=== PATIENT | male | born 1945 | race Caucasian/White ===

== ENCOUNTER 2019-03-15 09:20 | Day surgery (SDC) | payer OTHER ==
[~2019-03-15] VITALS: Ht 177.8 cm; Wt 102.7 kg
[~2019-03-15 09:20] MED LIST: HYDACE5 PO; LEVSOD125 PO; LEVSOD25 PO; TAMS.4ER PO; TELMISARTAN-HC1 EAC1 PO
--- NOTE | 2019-03-15 10:25 | NUR ---
03/15/19 1024 Sergo Goldberg 1ST IV ATTEMPT IN LH UNSUCCESSFUL, ORSC.BDK 2ND IV ATTEMPT IN LAC SUCCESSFUL, ORSC.BDK
== END 2019-03-15 12:10 | disposition home or self-care (01) ==
LOC: ORSCSDS 09:20
PROVIDERS: Orthopaedic Surgery
PROC: 0SBC4ZZ Excision of Right Knee Joint, Percutaneous Endoscopic Approach (ICD-10-PCS; principal; 2019-03-15 10:30)
DX: M23.206 Derangement of unspecified meniscus due to old tear or injury, right knee (principal); M17.11 Unilateral primary osteoarthritis, right knee; E03.9 Hypothyroidism, unspecified; Z79.899 Other long term (current) drug therapy
CPT/HCPCS: J0171; J0690; J1100; J1885; J2250; J2405; J2704; J3010; J3301; J7120

== ENCOUNTER 2019-12-10 11:53 | Observation (INO) | payer OTHER ==
[~2019-12-10] VITALS: Ht 177.8 cm; Wt 106.7 kg
[~2019-12-10 11:53] MED LIST changes: -CLIN300 PO; -TELM80 PO; -VISBIOME 112.51 EACH PO
[2019-12-10 12:51] LABS: BASOPHILS ABSOLUTE AUTO 0.03 K/mm3 (0.00-0.23); BASOPHILS PERCENT AUTO 0 % (0-2); EOSINOPHILS PERCENT AUTO 0 % (0-6); Hematocrit 42.8 % (37.0-53.0); Hemoglobin 14.7 g/dL (13.5-17.5); IMMATURE GRAN ABSOLUTE AUTO 0.04 K/mm3 (0.00-0.10); IMMATURE GRAN PERCENT AUTO 0 % (0-1); LYMPHOCYTES ABSOLUTE AUTO 0.77 K/mm3 (0.84-5.20); LYMPHOCYTES PERCENT AUTO 6 % (21-46); MONOCYTES ABSOLUTE AUTO 1.18 K/mm3 (0.16-1.47); MONOCYTES PERCENT AUTO 10 % (4-13); Mean Corpuscular HGB 30.8 pg (26.0-34.0); Mean Corpuscular HGB Conc 34.3 g/dL (31.5-36.5); Mean Corpuscular Volume 90 fL (80-100); Mean Platelet Volume 11.4 fL (9.1-12.4); NEUTROPHILS ABSOLUTE AUTO 10.31 K/mm3 (1.96-9.15); NEUTROPHILS PERCENT AUTO 84 % (41-73); Platelet Count 126 K/mm3 (150-400); RDW Coefficient Variation 12.4 % (11.7-14.2); RDW Standard Deviation 40.9 fL (35.1-46.3); Red Blood Cell Count 4.78 M/mm3 (4.30-5.90); White Blood Cell Count 12.33 K/mm3 (4.00-11.30)
[2019-12-10 13:02] LABS: Albumin, Blood 3.3 g/dL (3.4-5.0); Bilirubin, Total 1.2 mg/dL (0.1-1.0); Bun/Creatinine Ratio 10.6 (12.0-20.0); Creatinine, Blood 1.41 mg/dL (0.60-1.20); Globulin, Blood 3.2 g/dL (2.2-4.0); Potassium, Blood 3.3 mmol/L (3.5-5.5); Total Protein, Blood 6.5 g/dL (6.4-8.2)
--- NOTE | 2019-12-10 18:37 | NUR ---
PT AOX4 UPON ARRIVAL TO FLOOR AT 1700. PT HAS BEEN SETTLED INTO ROOM. CALL LIGHT IS WITHIN REACH AND BED IN LOWEST POSITION. PT STATED HE WAS HAVING PAIN AND WAS TREATED PER EMAR. AFTER PAIN MED ADMINISTERED PT HAS BECOME VERY SLEEPY, BUT HAS BEEN ABLE TO ANSWER ALL QUESTIONS. BED ALARM IS IN PLACE DUE TO HIM BEING TIRED FROM PAIN MED. WILL CONTINUE TO MONITOR.
--- NOTE | 2019-12-10 19:01 | NUR ---
ASSUMED CARE RECEIVED REPORT FROM GRACE COTTRELL. ASSUMED CARE OF PT. NO ACUTE DISTRESS NOTED AT THIS TIME, COMFORTABLE. DENIES NEEDS AT THIS TIME. CALL LIGHT, POSSESSIONS IN REACH, WILL CONTINUE TO MONITOR.
--- NOTE | 2019-12-11 04:55 | NUR ---
SHIFT SUMMARY PT HAS HAD AN UNEVENTFUL NIGHT. NO S/S ACUTE DISTRESS NOTED. WARM WASH CLOTH APPLIED TO LT CHEEK ORDERED, PT TOLERATED WELL. SWELLING DECREASING, NO S/S RESPIRATORY DISTRESS NOTED T/O NIGHT. VS STABLE. WAS MONITORED EVERY 1-2 HOURS WITH NEEDS MET, DENIES NEEDS AT THIS TIME. CALL LIGHT, POSSESSIONS IN REACH, BED IN LOWEST POSITION WITH ALARM ON. WILL CONTINUE TO MONITOR UNTIL DAY RN ASSUMES CARE.
[2019-12-11 05:45] LABS: BASOPHILS ABSOLUTE AUTO 0.04 K/mm3 (0.00-0.23); BASOPHILS PERCENT AUTO 0 % (0-2); EOSINOPHILS ABSOLUTE AUTO 0.04 K/mm3 (0.00-0.68); EOSINOPHILS PERCENT AUTO 0 % (0-6); Hematocrit 39.2 % (37.0-53.0); Hemoglobin 13.3 g/dL (13.5-17.5); IMMATURE GRAN ABSOLUTE AUTO 0.03 K/mm3 (0.00-0.10); IMMATURE GRAN PERCENT AUTO 0 % (0-1); LYMPHOCYTES ABSOLUTE AUTO 1.09 K/mm3 (0.84-5.20); LYMPHOCYTES PERCENT AUTO 12 % (21-46); MONOCYTES ABSOLUTE AUTO 1.04 K/mm3 (0.16-1.47); MONOCYTES PERCENT AUTO 12 % (4-13); Mean Corpuscular HGB 30.6 pg (26.0-34.0); Mean Corpuscular HGB Conc 33.9 g/dL (31.5-36.5); Mean Corpuscular Volume 90 fL (80-100); Mean Platelet Volume 11.3 fL (9.1-12.4); NEUTROPHILS ABSOLUTE AUTO 6.73 K/mm3 (1.96-9.15); NEUTROPHILS PERCENT AUTO 75 % (41-73); Platelet Count 109 K/mm3 (150-400); RDW Coefficient Variation 12.2 % (11.7-14.2); RDW Standard Deviation 40.1 fL (35.1-46.3); Red Blood Cell Count 4.35 M/mm3 (4.30-5.90); White Blood Cell Count 8.97 K/mm3 (4.00-11.30)
[2019-12-11 06:00] LABS: Bun/Creatinine Ratio 9.6 (12.0-20.0); Calcium, Blood 7.4 mg/dL (8.5-10.1); Creatinine, Blood 1.36 mg/dL (0.60-1.20); Potassium, Blood 3.2 mmol/L (3.5-5.5)
--- NOTE | 2019-12-11 16:48 | NUR ---
SHIFT SUMMARY THIS AFTERNOON PT FACIAL SWELLING INCREASED SLIGHTLY. TYLENOL GIVEN FOR PAIN & SWELLING. HEAT PACK APPLIED FOR COMFORT. PT NO STATES PAIN IS GONE. PT HAD ACCIDENT OF DIARRHEA ONCE THIS AFTERNOON. PT CLEANED UP. PROBIOTIC GIVEN EARLIER IN THE DAY TO HELP. NO OTHER ACUTE CHANGES IN ASSESSMENT AT THIS TIME. VSS. WILL CONTINUE TO MONITOR UNTIL TURNOVER IS COMPLETE.
--- NOTE | 2019-12-12 06:50 | NUR ---
12/12/19 0630 AWAKE AND WATCHING TV. CHEERFUL AND STATES SWELLING TO LEFT SIDE OF JAW IS BETTER THIS AM. STILL NOT ABLE TO OPEN HIS MOUTH FULLY. TAKING ORAL INTAKE WELL. VITALS STABLE.
[2019-12-12] MEDS ORDERED: TELM80 PO (10:12)
[2019-12-12] MEDS ORDERED: VISBIOME 112.51 EACH PO (10:14)
[2019-12-12] MEDS ORDERED: CLIN300 PO (10:14)
--- NOTE | 2019-12-12 11:33 | NUR ---
D/C NOTE: EDUCATION/INSTRUCTIONS GONE OVER WITH PT. PT DENIES ANY FURTHER QUESTIONS AT THIS TIME. IV DISCONTINUED IN TACT. PT CONTACTED FAMILY FOR RIDE HOME. PT TAKEN TO FAMILY VIA W/C. DISCHARGED AT 1134.
== END 2019-12-12 11:35 | disposition home or self-care (01) ==
LOC: ER 11:53 → MEDS 11:54
PROVIDERS: Emergency Medicine; ADMIT Internal Medicine
DX: K11.21 Acute sialoadenitis (principal); I10 Essential (primary) hypertension; E03.9 Hypothyroidism, unspecified; E87.6 Hypokalemia; Z79.899 Other long term (current) drug therapy
CPT/HCPCS: 36415; 70486; 80048; 80053; 85025; 96361; 96365; 96366; 96372; 96374; 96375; 96376; 99285-25; A9270; A9270-GY; G0378; J1170; J1650; J2405; J7030; J7050

== ENCOUNTER → 2019-12-10 | Outpatient (CLI) | payer OTHER ==
[~2019-12-10] MED LIST changes: +CLIN300 PO; +EUTHYROX125 MCG PO; -LEVSOD125 PO; +TELM80 PO; +VISBIOME 112.51 EACH PO
[2019-12-10 11:22] LABS: Albumin, Blood 3.9 g/dL (3.4-5.0); Albumin/Globulin Ratio 1.1 (0.8-1.8); Bilirubin, Total 1.3 mg/dL (0.1-1.0); Bun/Creatinine Ratio 8.6 (12.0-20.0); Calcium, Blood 8.7 mg/dL (8.5-10.1); Creatinine, Blood 1.74 mg/dL (0.60-1.20); Globulin, Blood 3.4 g/dL (2.2-4.0); Potassium, Blood 3.4 mmol/L (3.5-5.5); Total Protein, Blood 7.3 g/dL (6.4-8.2)
[2019-12-10 11:23] LABS: BASOPHILS ABSOLUTE AUTO 0.06 K/mm3 (0.00-0.23); BASOPHILS PERCENT AUTO 1 % (0-2); EOSINOPHILS ABSOLUTE AUTO 0.02 K/mm3 (0.00-0.68); EOSINOPHILS PERCENT AUTO 0 % (0-6); IMMATURE GRAN ABSOLUTE AUTO 0.03 K/mm3 (0.00-0.10); IMMATURE GRAN PERCENT AUTO 0 % (0-1); LYMPHOCYTES ABSOLUTE AUTO 1.32 K/mm3 (0.84-5.20); LYMPHOCYTES PERCENT AUTO 11 % (21-46); MONOCYTES ABSOLUTE AUTO 1.17 K/mm3 (0.16-1.47); MONOCYTES PERCENT AUTO 10 % (4-13); Mean Corpuscular HGB 30.7 pg (26.0-34.0); Mean Corpuscular HGB Conc 34.8 g/dL (31.5-36.5); Mean Corpuscular Volume 88 fL (80-100); Mean Platelet Volume 11.8 fL (9.1-12.4); NEUTROPHILS ABSOLUTE AUTO 9.09 K/mm3 (1.96-9.15); NEUTROPHILS PERCENT AUTO 78 % (41-73); Platelet Count 150 K/mm3 (150-400); RDW Coefficient Variation 12.5 % (11.7-14.2); Red Blood Cell Count 5.22 M/mm3 (4.30-5.90); White Blood Cell Count 11.69 K/mm3 (4.00-11.30)
== END | disposition home or self-care (01) ==
LOC: LAB SHORT 11:08 → LAB EV 11:08
PROVIDERS: Physician Assistant
DX: K11.20 Sialoadenitis, unspecified (principal)
CPT/HCPCS: 80053; 85025

== ENCOUNTER 2020-08-28 19:53 | Inpatient (IN) | payer OTHER ==
[~2020-08-28] VITALS: Ht 177.8 cm; Wt 104.3 kg
[~2020-08-28 19:53] MED LIST changes: +CLIN300 PO; +TELM80 PO; +VISBIOME 112.51 EACH PO
[2020-08-28] MEDS ORDERED: POTA10T PO (20:10)
[2020-08-28 20:40] LABS: BASOPHILS ABSOLUTE AUTO 0.03 K/mm3 (0.00-0.23); BASOPHILS PERCENT AUTO 0 % (0-2); EOSINOPHILS ABSOLUTE AUTO 0.06 K/mm3 (0.00-0.68); EOSINOPHILS PERCENT AUTO 1 % (0-6); Hematocrit 29.7 % (37.0-53.0); Hemoglobin 9.9 g/dL (13.5-17.5); IMMATURE GRAN ABSOLUTE AUTO 0.15 K/mm3 (0.00-0.10); IMMATURE GRAN PERCENT AUTO 1 % (0-1); LYMPHOCYTES ABSOLUTE AUTO 0.84 K/mm3 (0.84-5.20); LYMPHOCYTES PERCENT AUTO 7 % (21-46); MONOCYTES ABSOLUTE AUTO 0.63 K/mm3 (0.16-1.47); MONOCYTES PERCENT AUTO 5 % (4-13); Mean Corpuscular HGB 30.2 pg (26.0-34.0); Mean Corpuscular HGB Conc 33.3 g/dL (31.5-36.5); Mean Corpuscular Volume 91 fL (80-100); Mean Platelet Volume 10.5 fL (9.1-12.4); NEUTROPHILS PERCENT AUTO 86 % (41-73); Platelet Count 339 K/mm3 (150-400); RDW Coefficient Variation 12.4 % (11.7-14.2); RDW Standard Deviation 40.7 fL (35.1-46.3); Red Blood Cell Count 3.28 M/mm3 (4.30-5.90); White Blood Cell Count 12.11 K/mm3 (4.00-11.30)
[2020-08-28 20:54] LABS: Alanine Aminotransfer (ALT/SGP 53 U/L (12-78); Albumin, Blood 2.4 g/dL (3.4-5.0); Albumin/Globulin Ratio 0.9 (0.8-1.8); Alk Phos 79 U/L (50-136); Anion Gap 4 mmol/L (6-16); Aspartate Aminotrans (AST/SGOT 21 U/L (12-37); Bilirubin, Total 0.5 mg/dL (0.1-1.0); Blood Urea Nitrogen 32 mg/dL (8-24); Bun/Creatinine Ratio 24.8 (12.0-20.0); CO2, Blood 27 mmol/L (21-32); Calcium, Blood 7.7 mg/dL (8.5-10.1); Chloride, Blood 109 mmol/L (98-108); Creatinine, Blood 1.29 mg/dL (0.60-1.20); Globulin, Blood 2.6 g/dL (2.2-4.0); Glomerular Filtration Rate 57 (60-); Glucose, Blood 149 mg/dL (70-99); Magnesium, Blood 2.2 mg/dL (1.6-2.4); Potassium, Blood 4.8 mmol/L (3.5-5.5); Sodium, Blood 140 mmol/L (136-145); Troponin I <0.015 ng/mL (0.000-0.040)
[2020-08-28 21:46] LABS: SARS-Cov-2 (COVID-19) PCR, MMC Positive (NEGATIVE)
[2020-08-28 21:49] LABS: Influenza A, PCR Negative (NEGATIVE); Influenza B, PCR Negative (NEGATIVE); Resp Syncytial Virus, PCR Negative (NEGATIVE)
--- NOTE | 2020-08-29 01:22 | NUR ---
ADMIT NOTE PT ARRIVED TO PCU FROM ED VIA ED STRETCHER AT APPROX MIDNIGHT. PT WAS SLID BY 4 STAFF FROM ED STRETCHER TO PCU BED. PT WAS ACCOMPANIED BY WHO WENT HOME. PT IS A&OX4. SP02>92% ON RA. TELEMETRY READS ST, HR 100'S. UPON ARRIVAL, PT STATED HE NEEDED TO HAVE A BM. PT UP TO BS W/ 2 PERSON ASSIST TO HAVE BLACK TARRY MIXED WITH RED LOOSE BM. PT C/O OF DIZZINESS WHILE PIVOTING TO BED FROM [facility]. PROTONIX INFUSING PER EMAR. ABX INFUSING PER EMAR. PT ORIENTED TO ROOM, CALL LIGHT IN REACH. SCD'S IN PLACE FOR DVT PROPHYLAXIS.
[2020-08-29 04:57] LABS: BASOPHILS ABSOLUTE AUTO 0.02 K/mm3 (0.00-0.23); BASOPHILS PERCENT AUTO 0 % (0-2); EOSINOPHILS ABSOLUTE AUTO 0.01 K/mm3 (0.00-0.68); EOSINOPHILS PERCENT AUTO 0 % (0-6); Hematocrit 25.2 % (37.0-53.0); Hemoglobin 8.2 g/dL (13.5-17.5); IMMATURE GRAN ABSOLUTE AUTO 0.11 K/mm3 (0.00-0.10); IMMATURE GRAN PERCENT AUTO 1 % (0-1); LYMPHOCYTES ABSOLUTE AUTO 1.14 K/mm3 (0.84-5.20); LYMPHOCYTES PERCENT AUTO 8 % (21-46); MONOCYTES ABSOLUTE AUTO 0.85 K/mm3 (0.16-1.47); MONOCYTES PERCENT AUTO 6 % (4-13); Mean Corpuscular HGB 29.6 pg (26.0-34.0); Mean Corpuscular HGB Conc 32.5 g/dL (31.5-36.5); Mean Corpuscular Volume 91 fL (80-100); Mean Platelet Volume 10.3 fL (9.1-12.4); NEUTROPHILS ABSOLUTE AUTO 12.87 K/mm3 (1.96-9.15); NEUTROPHILS PERCENT AUTO 86 % (41-73); Platelet Count 308 K/mm3 (150-400); RDW Coefficient Variation 12.5 % (11.7-14.2); RDW Standard Deviation 41.4 fL (35.1-46.3); Red Blood Cell Count 2.77 M/mm3 (4.30-5.90)
[2020-08-29 05:12] LABS: Calcium, Blood 7.4 mg/dL (8.5-10.1); Creatinine, Blood 1.25 mg/dL (0.60-1.20)
--- NOTE | 2020-08-29 06:25 | NUR ---
SHIFT SUMMARY PT IS A&OX4. SP02>92% ON RA. TELEMETRY READS ST, HR 100'S. UPON ARRIVAL, PT STATED HE NEEDED TO HAVE A BM. PT UP TO BSC W/ 2 PERSON ASSIST TO HAVE BLACK TARRY MIXED WITH RED LOOSE BM. PT C/O OF DIZZINESS WHILE PIVOTING TO BED FROM BSC. PT SLEPT T/O THE NIGHT. PROTONIX INFUSING PER EMAR. ABX INFUSING PER EMAR. CALL LIGHT IN REACH. WILL GIVE REPORT TO ONCOMING NURSE.
[2020-08-29 10:48] LABS: Hematocrit 23.5 % (37.0-53.0); Hemoglobin 7.7 g/dL (13.5-17.5)
[2020-08-29 14:21] LABS: Hematocrit 26.4 % (37.0-53.0); Hemoglobin 8.6 g/dL (13.5-17.5)
--- NOTE | 2020-08-29 15:13 | NUR ---
BROUGHT TO [facility] ADMISSION [facility]ARTE DTO UNIT
--- NOTE | 2020-08-29 15:36 | NUR ---
08/29/20 1536 Stewart Acosta See Anesthesia record. O2 VIA N/C INTACT THROUGHOUT SEDATION/PROCEDURE. MONITOR INTACT WITH CONTINUOUS PULSE OXIMETRY AND INTERMITTENT BP.
--- NOTE | 2020-08-29 18:28 | NUR ---
SHIFT SUMMARY- PT IS A/O, PLESANT AND COOPERATIVE. HE IS EATING AND DRINKING WELL. HE HAD A BLOODY BM THIS MORNING. HE IS RECIEVING IV PROTONIX DRIP AND IV FLUIDS. HE RECIEVED A BLOOD TRANSFUSION THIS AFTERNOON. HE WENT FOR AN EGD THIS AFTERNOON AND A BLEED WAS LOCATED AND THREE CLIPS WERE PLACED. SPOKE WITH HIS ON THE PHONE TO UPDATE. HIS BED IS IN THE LOW POSITION AND CALL LIGHT IS WITHIN REACH.
[2020-08-29 18:36] LABS: Hematocrit 28.3 % (37.0-53.0); Hemoglobin 9.4 g/dL (13.5-17.5)
[2020-08-29 21:35] LABS: Hematocrit 26.1 % (37.0-53.0); Hemoglobin 8.8 g/dL (13.5-17.5)
[2020-08-30 04:29] LABS: BASOPHILS ABSOLUTE AUTO 0.02 K/mm3 (0.00-0.23); BASOPHILS PERCENT AUTO 0 % (0-2); EOSINOPHILS PERCENT AUTO 0 % (0-6); Hematocrit 25.7 % (37.0-53.0); Hemoglobin 8.6 g/dL (13.5-17.5); IMMATURE GRAN ABSOLUTE AUTO 0.25 K/mm3 (0.00-0.10); IMMATURE GRAN PERCENT AUTO 2 % (0-1); LYMPHOCYTES ABSOLUTE AUTO 0.78 K/mm3 (0.84-5.20); LYMPHOCYTES PERCENT AUTO 6 % (21-46); MONOCYTES ABSOLUTE AUTO 0.75 K/mm3 (0.16-1.47); MONOCYTES PERCENT AUTO 5 % (4-13); Mean Corpuscular HGB 30.2 pg (26.0-34.0); Mean Corpuscular HGB Conc 33.5 g/dL (31.5-36.5); Mean Corpuscular Volume 90 fL (80-100); Mean Platelet Volume 10.2 fL (9.1-12.4); NEUTROPHILS ABSOLUTE AUTO 12.37 K/mm3 (1.96-9.15); NEUTROPHILS PERCENT AUTO 87 % (41-73); Platelet Count 309 K/mm3 (150-400); RDW Coefficient Variation 13.3 % (11.7-14.2); RDW Standard Deviation 43.9 fL (35.1-46.3); Red Blood Cell Count 2.85 M/mm3 (4.30-5.90); White Blood Cell Count 14.17 K/mm3 (4.00-11.30)
--- NOTE | 2020-08-30 04:39 | NUR ---
SHIFT SUMMARY NO ACUTE CHANGES THIS SHIFT. PT A&OX4. SP02>92% ON RA. TELEMETRY READS SR, HR 80'S-90'S. PT UP TO BSC W/ ASSIST, DENIES DIZZINESS OR SOB W/ AMBULATION. PT DENIES PAIN. PT STATES HE "FEELS ALOT BETTER THAN YESTERDAY". PT REMAINS ON CL DIET. LR AND PROTONIX INFUSING PER EMAR. PT SLEPT T/O THE NIGHT. CALL LIGHT IN REACH. WILL MONITOR AND GIVE REPORT TO ONCOMING SHIFT NURSE.
[2020-08-30 04:48] LABS: Anion Gap 7 mmol/L (6-16); Blood Urea Nitrogen 24 mg/dL (8-24); Bun/Creatinine Ratio 19.5 (12.0-20.0); CO2, Blood 24 mmol/L (21-32); Calcium, Blood 7.9 mg/dL (8.5-10.1); Chloride, Blood 115 mmol/L (98-108); Creatinine, Blood 1.23 mg/dL (0.60-1.20); Glomerular Filtration Rate >60 (60-); Glucose, Blood 129 mg/dL (70-99); Potassium, Blood 4.3 mmol/L (3.5-5.5); Sodium, Blood 146 mmol/L (136-145)
--- NOTE | 2020-08-30 16:24 | NUR ---
TRANSFER/SHIFT SUMMARY PT IS ALERT AND ORIENTED X4. ON ROOM AIR SATING >92%. DENIES SOB, AND CHEST PAIN. TELE SHOWING SINUS RHYTHM. NO BOWEL MOVEMENT THIS SHIFT, UNABLE TO VISUALIZE STOOL. CONTINUOUS PROTONIX AND LR INFUSING. FULL LIQUID DIET WITH GOOD APPETITE. VITAL SIGNS STABLE. NO ACUTE CHANGES THIS SHIFT.
--- NOTE | 2020-08-30 16:53 | NUR ---
RECEIVED PT 1640. PLEASANT TALKATIVE. STATES FROM [place]. DENIES PAIN. ON R.A. DENIES SOB. PT AMBULATED SELF TO BED FROM WHEELCHAIR. PROTONIX RUNNING PRESENTLY. ALSO EXTRA BAG IN RESERVE. NO CONCERNS AT THIS TIME. SITTTING UP WATCHING TV AT THIS TIME. BED IN LOW POSITION, CALL LITE IN REACH, CALLS APPROP
[2020-08-31 05:04] LABS: BASOPHILS ABSOLUTE AUTO 0.02 K/mm3 (0.00-0.23); BASOPHILS PERCENT AUTO 0 % (0-2); EOSINOPHILS PERCENT AUTO 0 % (0-6); Hematocrit 25.8 % (37.0-53.0); Hemoglobin 8.6 g/dL (13.5-17.5); IMMATURE GRAN ABSOLUTE AUTO 0.33 K/mm3 (0.00-0.10); IMMATURE GRAN PERCENT AUTO 2 % (0-1); LYMPHOCYTES ABSOLUTE AUTO 0.99 K/mm3 (0.84-5.20); LYMPHOCYTES PERCENT AUTO 6 % (21-46); MONOCYTES ABSOLUTE AUTO 1.01 K/mm3 (0.16-1.47); MONOCYTES PERCENT AUTO 6 % (4-13); Mean Corpuscular HGB 29.6 pg (26.0-34.0); Mean Corpuscular HGB Conc 33.3 g/dL (31.5-36.5); Mean Corpuscular Volume 89 fL (80-100); Mean Platelet Volume 10.2 fL (9.1-12.4); NEUTROPHILS ABSOLUTE AUTO 14.47 K/mm3 (1.96-9.15); NEUTROPHILS PERCENT AUTO 86 % (41-73); NRBC ABSOLUTE 0.04 K/mm3 (0.00-0.02); NRBC Auto 0.2 /100 WBC (0.0-0.2); Platelet Count 358 K/mm3 (150-400); RDW Coefficient Variation 13.2 % (11.7-14.2); RDW Standard Deviation 42.4 fL (35.1-46.3); Red Blood Cell Count 2.91 M/mm3 (4.30-5.90); White Blood Cell Count 16.82 K/mm3 (4.00-11.30)
[2020-08-31 05:20] LABS: Anion Gap 5 mmol/L (6-16); Blood Urea Nitrogen 18 mg/dL (8-24); Bun/Creatinine Ratio 15.5 (12.0-20.0); CO2, Blood 26 mmol/L (21-32); Calcium, Blood 8.3 mg/dL (8.5-10.1); Chloride, Blood 114 mmol/L (98-108); Creatinine, Blood 1.16 mg/dL (0.60-1.20); Glomerular Filtration Rate >60 (60-); Glucose, Blood 119 mg/dL (70-99); Potassium, Blood 4.1 mmol/L (3.5-5.5); Sodium, Blood 145 mmol/L (136-145)
--- NOTE | 2020-08-31 05:59 | NUR ---
SHIFT SUMMARY: PATIENT IS A&OX4, VSS, NO REPORTS OF PAIN. TOLERATING A FULL LIQUID DIET FAIR, POOR APPETITE. UP TO THE BSC WITH SBA X1, VOIDS IN URINAL. LR INFUSING @ 100ML/HR, PROTONIX GTT INFUSING AT 10ML/HR.
[2020-08-31] MEDS ORDERED: PANT40 PO (17:42)
[2020-08-31] MEDS ORDERED: REMDESIVIR IV (17:43)
[2020-08-31] MEDS ORDERED: DEXA6 PO (17:44)
--- NOTE | 2020-08-31 19:06 | NUR ---
SHIFT SUMMARY PT A/O X3; PLEASANT AND COOPERATIVE WITH CARE. RECEIVED IV STEROIDS THIS AM. WILL RECEIVED INFUSIONS AT THE [facility]ION [facility] UPON DISCHARGE. FAMILY NOTIFIED OF THIS AND APPOINTMENTS SET UP. UP WITH A ONE ASSIST. ON ROOM AIR. NO ACUTE CHANGES THIS SHIFT. VSS. DISCHARGED HOME WITH DAUGHTER.
--- NOTE | 2020-09-02 19:39 | NUR ---
CALLED PT RE PILL ORGANIZER WITH PILLS LEFT BEHIND AT DISCHARGE, PT REPORTS HE WILL PICK IT UP WHEN HE IS ABLE TO GET TO TOWN NEXT, SENT TO PHARMACY.
--- NOTE | 2020-09-02 19:50 | NUR ---
PHARMACY JUST CALLED AND TOLD ME THAT THEY ARE NOT ALLOWED TO TAKE ANYTHING FROM A PT'S ROOM THAT WAS COVID POSITIVE. IT WAS MY UNDERSTANDING THAT ANY MEDS FROM THEIR ROOM WAS SUPPOSED TO BE PLACED IN A BAG BEFORE IT COULD BE SENT FROM PHARMACY, NOT THAT THEY COULD NOT TAKE IT AT ALL, THE MED WAS PLACED IN A BAG BEFORE IT WAS SENT TO PHARMACY, I ALSO ATTEMPTED TO CALL THEM WHEN THE MED WAS SENT TO LET THEM KNOW I WAS SENDING A MED FOR THEIR SAFE FOR THE PT TO HOT ROLL LAMINATOR AND NO ONE ANSWERED THE PHONE. PHARMACY STATED IT DOES NOT MATTER IF I PLACED IT IN A BAG OR THAT THE PT IS EXPECTING TO HOT ROLL LAMINATOR THEIR MEDS AND PILL ORGANIZER, THEY THREW IT AWAY AND ARE WRITING AN IRIS ON IT. I LET HER KNOW THAT THEY COULD EXPLAIN TO THE PT WHY THEY THREW THEIR MEDICATIONS AWAY WHEN THEY CAME TO PICK THEM UP. I AM NOT SURE THEIR ACTIONS WERE THE APPROPRIATE ACTIONS.
== END 2020-08-31 18:53 | disposition home or self-care (01) | DRG 871 ==
LOC: ER 19:53 → PCU 23:44 → MEDS 23:44 → PCU 23:57 → MEDS 08-30 16:28
PROVIDERS: Emergency Medicine; Internal Medicine; Student in an Organized Health Care Education/Training Program; ADMIT Family Medicine
PROC: XW043E5 Introduction of Remdesivir Anti-infective into Central Vein, Percutaneous Approach, New Technology Group 5 (ICD-10-PCS; 2020-08-28)
PROC: XW13325 Transfusion of Convalescent Plasma (Nonautologous) into Peripheral Vein, Percutaneous Approach, New Technology Group 5 (ICD-10-PCS; 2020-08-28)
PROC: 30233N1 Transfusion of Nonautologous Red Blood Cells into Peripheral Vein, Percutaneous Approach (ICD-10-PCS; 2020-08-29)
PROC: 0W3P8ZZ Control Bleeding in Gastrointestinal Tract, Via Natural or Artificial Opening Endoscopic (ICD-10-PCS; principal; 2020-08-29 14:30)
PROC: 0D598ZZ Destruction of Duodenum, Via Natural or Artificial Opening Endoscopic (ICD-10-PCS; 2020-08-29 14:30)
PROC: 3E0G8GC Introduction of Other Therapeutic Substance into Upper GI, Via Natural or Artificial Opening Endoscopic (ICD-10-PCS; 2020-08-29 14:30)
DX: A41.89 Other specified sepsis (principal); J12.82 Pneumonia due to coronavirus disease 2019; U07.1 COVID-19; K26.4 Chronic or unspecified duodenal ulcer with hemorrhage; D62 Acute posthemorrhagic anemia; E03.9 Hypothyroidism, unspecified; R65.20 Severe sepsis without septic shock; I12.9 Hypertensive chronic kidney disease with stage 1 through stage 4 chronic kidney disease, or unspecified chronic kidney disease; N18.30 Chronic kidney disease, stage 3 unspecified; Z85.46 Personal history of malignant neoplasm of prostate; Z92.3 Personal history of irradiation; R79.89 Other specified abnormal findings of blood chemistry
CPT/HCPCS: 0241U; 36415; 36430; 71045; 80048; 80053; 82272; 83605; 83735; 84145; 84484; 85014; 85018; 85025; 86850; 86900; 86901; 86923; 87040; 93005; 93010; 94762; 96361; 96365; 96366; 96368; 99285-25; A9270; C9113; J0171; J0456; J0696; J1100; J2704; J2765; J7030; J7050; J7120; P9016

== ENCOUNTER 2020-09-01 15:23 | Day surgery (SDC) | payer OTHER ==
[~2020-09-01 15:23] MED LIST changes: +DEXA6 PO; +PANT40 PO; +POTA10T PO; +REMDESIVIR IV
== END 2020-09-01 17:01 | disposition home or self-care (01) ==
LOC: ATC 15:23
DX: U07.1 COVID-19 (principal); I12.9 Hypertensive chronic kidney disease with stage 1 through stage 4 chronic kidney disease, or unspecified chronic kidney disease; N18.30 Chronic kidney disease, stage 3 unspecified; E03.9 Hypothyroidism, unspecified; Z85.46 Personal history of malignant neoplasm of prostate; Z86.010 Personal history of colon polyps; Z87.01 Personal history of pneumonia (recurrent)
CPT/HCPCS: 96365

== ENCOUNTER 2020-09-02 14:30 | Day surgery (SDC) | payer OTHER | END 2020-09-02 17:20 | disposition home or self-care (01) | LOC: ATC 14:30 | DX: U07.1 COVID-19 (principal); J12.81 Pneumonia due to SARS-associated coronavirus; K92.1 Melena; K92.0 Hematemesis; I12.9 Hypertensive chronic kidney disease with stage 1 through stage 4 chronic kidney disease, or unspecified chronic kidney disease; N18.30 Chronic kidney disease, stage 3 unspecified; E03.9 Hypothyroidism, unspecified; D62 Acute posthemorrhagic anemia; I82.409 Acute embolism and thrombosis of unspecified deep veins of unspecified lower extremity; D72.829 Elevated white blood cell count, unspecified; Z85.46 Personal history of malignant neoplasm of prostate | CPT/HCPCS: 96365 ==

== ENCOUNTER 2024-03-29 14:38 | Emergency (ER) | payer OTHER ==
[~2024-03-29] VITALS: Ht 177.8 cm; Wt 106.6 kg
[~2024-03-29 14:38] MED LIST changes: +CEFD300 PO; +MECL25 PO
[2024-03-29 14:56] LABS: BASOPHILS ABSOLUTE AUTO 0.06 K/mm3 (0.00-0.23); BASOPHILS PERCENT AUTO 1 % (0-2); EOSINOPHILS ABSOLUTE AUTO 0.13 K/mm3 (0.00-0.68); EOSINOPHILS PERCENT AUTO 2 % (0-6); Hematocrit 43.3 % (37.0-53.0); Hemoglobin 14.9 g/dL (13.5-17.5); IMMATURE GRAN ABSOLUTE AUTO 0.02 K/mm3 (0.00-0.10); IMMATURE GRAN PERCENT AUTO 0 % (0-1); LYMPHOCYTES ABSOLUTE AUTO 1.19 K/mm3 (0.84-5.20); LYMPHOCYTES PERCENT AUTO 21 % (21-46); MONOCYTES ABSOLUTE AUTO 0.55 K/mm3 (0.16-1.47); MONOCYTES PERCENT AUTO 10 % (4-13); Mean Corpuscular HGB 30.5 pg (26.0-34.0); Mean Corpuscular HGB Conc 34.4 g/dL (31.5-36.5); Mean Corpuscular Volume 89 fL (80-100); Mean Platelet Volume 11.4 fL (9.1-12.4); NEUTROPHILS ABSOLUTE AUTO 3.68 K/mm3 (1.96-9.15); NEUTROPHILS PERCENT AUTO 65 % (41-73); Platelet Count 149 K/mm3 (150-400); RDW Coefficient Variation 12.8 % (11.7-14.2); RDW Standard Deviation 41.5 fL (35.1-46.3); Red Blood Cell Count 4.89 M/mm3 (4.30-5.90); White Blood Cell Count 5.63 K/mm3 (4.00-11.30)
[2024-03-29 15:09] LABS: Albumin, Blood 3.3 g/dL (3.4-5.0); Albumin/Globulin Ratio 1.2 (0.8-1.8); Bilirubin, Total 0.5 mg/dL (0.1-1.0); Bun/Creatinine Ratio 12.6 (12.0-20.0); Calcium, Blood 8.3 mg/dL (8.5-10.1); Creatinine, Blood 1.43 mg/dL (0.60-1.20); Globulin, Blood 2.8 g/dL (2.2-4.0); Potassium, Blood 3.7 mmol/L (3.5-5.5); Total Protein, Blood 6.1 g/dL (6.4-8.2)
[2024-03-29] MEDS ORDERED: Tetracaine HCl/Pf 0.5% Opth Soln 4 ml RIGHTEYE ONE (15:30)
[2024-03-29] MEDS ORDERED: Ketorolac Tromethamine 15mg Vial IV ONE (15:30)
[2024-03-29] MEDS ORDERED: Fluorescein Sod 1MG Opth Strips RIGHTEYE ONE (15:35)
[2024-03-29] MEDS ORDERED: NS 1,000 ML IV SCH (15:35)
[2024-03-29 17:41] VITALS: BP 169/82
== END 2024-03-29 17:43 | disposition home or self-care (01) ==
LOC: ER 14:38
PROVIDERS: Emergency Medicine
DX: T22.111A Burn of first degree of right forearm, initial encounter (principal); T20.10XA Burn of first degree of head, face, and neck, unspecified site, initial encounter; R07.89 Other chest pain; I10 Essential (primary) hypertension; E03.9 Hypothyroidism, unspecified; Z79.899 Other long term (current) drug therapy
CPT/HCPCS: 71046; 80053; 84484; 85025; 93005; 93010; 96361; 96374; 99284-25; A9270; J1885; J7030